=== PATIENT | female | born 1955 | race Hispanic/Latino ===

== ENCOUNTER 2017-09-01 08:49 | Emergency (ER) | payer MEDICAID ==
[~2017-09-01 08:49] MED LIST: ALPR1TAB7 PO; ASPI-1005 PO; ATOR10 PO; FLUO40CA49 PO; GABA-531 PO; HYDR12.530 PO; HYDR1TAB10 PO; IBUP-2077 PO; LOSA25TA21 PO; Levofloxacin PO; METAMUCIL425 GM PO; METH500T6 PO; OSEL75 PO; PANT40TA25 PO; QUET200XR PO; fluoxetine PO
[2017-09-01 09:15] LABS: APPEARANCE,URINE Clear (CLEAR); BILIRUBIN,URINE Negative (NEGATIVE); COLOR,URINE Yellow (YELLOW); GLUCOSE, URINE (UA) Negative (NEGATIVE); KETONES,URINE Negative (NEGATIVE); LEUKOCYTE ESTERASE ,URINE Small (NEGATIVE); NITRATE,URINE Negative (NEGATIVE); OCCULT BLOOD,URINE Negative (NEGATIVE); PH,URINE 5.5 (5.0-8.0); PROTEIN,URINE Negative (NEGATIVE); UROBILINOGEN,URINE 0.2 mg/dL (0.2-1.0)
[2017-09-01] MEDS ORDERED: ONDANSETRON HCL 4 MG/2 ML VIAL ONE (09:26)
[2017-09-01] MEDS ORDERED: FAMOTIDINE/PF 20 MG/2 ML VIAL IV ONE (09:27)
[2017-09-01 09:30] LABS: BASOPHILS % (AUTO) 0.5 % (0.0-5.0); EOSINOPHILS % (AUTO) 4.2 % (0.0-8.0); HEMATOCRIT 33.7 % (36-48); LYMPHOCYTES % (AUTO) 20.9 % (21.0-51.0); MEAN CORPUSCULAR HEMOGLOBIN 29.8 pg (27.0-33.0); MEAN CORPUSCULAR HGB CONC 33.8 g/dL (32.0-36.0); MONOCYTES % (AUTO) 6.1 % (3.0-13.0); NEUTROPHILS % (AUTO) 68.3 % (40.0-77.0); NUCLEATED RED BLOOD CELLS 0.1 % (0.0-0.19); PLATELET COUNT (AUTO) 257 K/uL (130-400); RED BLOOD CELL COUNT(AUTO) 3.83 MIL/uL (4.00-5.50); RED CELL DISTRIBUTION WIDTH 14.7 % (11.0-15.5); WHITE BLOOD COUNT (AUTO) 10.2 K/uL (4.8-10.8)
[2017-09-01 09:34] LABS: RBC,URINE 0-1 /HPF (0-1)
[2017-09-01 09:35] LABS: BACTERIA,URINE Moderate /HPF (None Seen); SQUAMOUS EPITHELIAL CELL,UR Few /LPF (0-2)
[2017-09-01 09:37] LABS: CREATININE 0.9 mg/dL (0.5-1.5); POTASSIUM 3.6 mmol/L (3.5-5.1)
[2017-09-01 09:45] LABS: ALBUMIN 2.8 g/dL (3.5-5.0); BILIRUBIN,TOTAL 0.3 mg/dL (0.2-1.0); TOTAL PROTEIN, SERUM 7.3 g/dL (6.0-8.3)
[2017-09-01] MEDS ORDERED: IOPAMIDOL-370 75 ML VIAL IV ONE (09:48)
[2017-09-01] MEDS ORDERED: SUCRALFATE 1 GM TABLET ONE (11:41)
[2017-09-01] MEDS ORDERED: MAG HYDROX/AL HYDROX/SIMETH ES 30 ML SUSP UDCUP ONE (11:41)
[2017-09-01] MEDS ORDERED: DICYCLOMINE HCL 20 MG TAB ONE (11:42)
== END 2017-09-01 13:05 | disposition home or self-care (01) ==
LOC: EDH 08:49
DX: R10.12 Left upper quadrant pain (principal); R11.2 Nausea with vomiting, unspecified; E11.9 Type 2 diabetes mellitus without complications; I10 Essential (primary) hypertension; Z98.890 Other specified postprocedural states; Z87.891 Personal history of nicotine dependence
CPT/HCPCS: 36415; 74177; 80053; 81001; 85025; 87088; 87186; 93005; 96374; 96375; 99285; J2405; J3490; Q9967

== ENCOUNTER 2017-09-09 13:02 | Inpatient (IN) | payer MEDICAID ==
[~2017-09-09] VITALS: Ht 165.1 cm; Wt 128.1 kg
[2017-09-09 14:16] LABS: BASOPHILS % (AUTO) 0.4 % (0.0-5.0); EOSINOPHILS % (AUTO) 2.3 % (0.0-8.0); HEMATOCRIT 37.4 % (36-48); LYMPHOCYTES % (AUTO) 12.6 % (21.0-51.0); MEAN CORPUSCULAR HEMOGLOBIN 29.7 pg (27.0-33.0); MEAN CORPUSCULAR HGB CONC 33.1 g/dL (32.0-36.0); MEAN CORPUSCULAR VOLUME 89.8 fL (79-99); MONOCYTES % (AUTO) 5.6 % (3.0-13.0); NEUTROPHILS % (AUTO) 79.1 % (40.0-77.0); PLATELET COUNT (AUTO) 263 K/uL (130-400); RED BLOOD CELL COUNT(AUTO) 4.17 MIL/uL (4.00-5.50); RED CELL DISTRIBUTION WIDTH 14.4 % (11.0-15.5); WHITE BLOOD COUNT (AUTO) 13.4 K/uL (4.8-10.8)
[2017-09-09] MEDS ORDERED: MEROPENEM 1 GM VIAL ONE ×2 (14:17→21:04)
[2017-09-09 14:23] LABS: APPEARANCE,URINE Clear (CLEAR); BILIRUBIN,URINE Negative (NEGATIVE); COLOR,URINE Yellow (YELLOW); GLUCOSE, URINE (UA) Negative (NEGATIVE); KETONES,URINE Negative (NEGATIVE); LEUKOCYTE ESTERASE ,URINE Trace (NEGATIVE); NITRATE,URINE Negative (NEGATIVE); OCCULT BLOOD,URINE Negative (NEGATIVE); PH,URINE 6.5 (5.0-8.0); POTASSIUM 3.7 mmol/L (3.5-5.1); PROTEIN,URINE Negative (NEGATIVE); UROBILINOGEN,URINE 0.2 mg/dL (0.2-1.0)
[2017-09-09 14:30] LABS: BACTERIA,URINE Rare /HPF (None Seen); RBC,URINE 0-1 /HPF (0-1); SQUAMOUS EPITHELIAL CELL,UR Rare /LPF (0-2); WBC,URINE 0-1 /HPF (0-1)
[2017-09-09] MEDS ORDERED: ACETAMINOPHEN 325 MG TAB PO PRN (22:45)
[2017-09-10] MEDS ORDERED: PHARMACY COMMUNICATION MISC SCH (00:45)
[2017-09-10] MEDS ORDERED: MEROPENEM 500MG+NS 50ML 50 ML IV SCH (05:00)
[2017-09-10] MEDS ORDERED: MEROPENEM 500 MG VIAL ONE ×2 (05:33→13:45)
[2017-09-10 05:57] LABS: HEMATOCRIT 33.3 % (36-48); MEAN CORPUSCULAR HEMOGLOBIN 30.5 pg (27.0-33.0); MEAN CORPUSCULAR VOLUME 89.8 fL (79-99); PLATELET COUNT (AUTO) 235 K/uL (130-400); RED BLOOD CELL COUNT(AUTO) 3.71 MIL/uL (4.00-5.50); RED CELL DISTRIBUTION WIDTH 14.3 % (11.0-15.5); WHITE BLOOD COUNT (AUTO) 10.6 K/uL (4.8-10.8)
[2017-09-10 06:14] LABS: MAGNESIUM 1.6 mg/dL (1.80-2.40); POTASSIUM 3.8 mmol/L (3.5-5.1)
[2017-09-10] MEDS ORDERED: PANTOPRAZOLE SODIUM 40 MG TABLET.DR PO ONE (08:28)
[2017-09-10] MEDS ORDERED: ENOXAPARIN SODIUM 40 MG/0.4 ML SYRINGE SQ ONE (08:28)
[2017-09-10] MEDS: ENOXAPARIN SODIUM 40 MG/0.4 ML SYRINGE SQ SCH (09:00)
[2017-09-10] MEDS ORDERED: HYDROCODONE/ACETAMINOPHEN 5/325 MG TAB PO PRN (13:45)
[2017-09-10] MEDS ORDERED: LIDOCAINE 5% TOPICAL PATCH TP PRN (13:45)
[2017-09-10] MEDS: GABAPENTIN 300 MG CAPSULE PO SCH ×2 (14:00→21:43)
[2017-09-10] MEDS: ALPRAZOLAM 1 MG TAB PO SCH ×2 (14:00→21:43)
[2017-09-10] MEDS: DOCUSATE SODIUM 100 MG CAP PO SCH ×2 (14:00→21:00)
[2017-09-10 15:15] VITALS: BP 137/67
[2017-09-10] MEDS: LEFLUNOMIDE 10 MG PO SCH (16:02)
[2017-09-10] MEDS: METFORMIN HCL 500 MG TABLET PO SCH (16:02)
[2017-09-10] MEDS: PANTOPRAZOLE SODIUM 40 MG TABLET.DR PO SCH (16:26)
[2017-09-10] MEDS ORDERED: PNEUMOCOCCAL VACCINE POLYVALENT 0.5 ML/VIAL [PPV] IM SCH (18:45)
[2017-09-10 20:00] VITALS: BP 130/76
[2017-09-10] MEDS ORDERED: INSULIN DETEMIR 10ML 100 UNIT/ML 10ML SQ SCH (21:00)
[2017-09-10] MEDS: INSULIN HUMULIN R 100 UNIT/ML 3ML SQ SCH (21:00)
[2017-09-10] MEDS: MEROPENEM 500 MG VIAL IVP SCH (21:42)
[2017-09-10] MEDS: ATORVASTATIN CALCIUM 40 MG TABLET PO SCH (21:43)
[2017-09-10] MEDS: INSULIN GLARGINE 100 UNITS/ML 10 ML VIAL SQ SCH (22:28)
[2017-09-10] MEDS ORDERED: INSULIN GLARGINE 100 UNITS/ML 10 ML VIAL SQ ONE (22:36)
[2017-09-11] VITALS (7 sets, daily range): BP systolic 107–136; BP diastolic 64–87
[2017-09-11] MEDS: MEROPENEM 500 MG VIAL IVP SCH ×3 (05:10→22:30)
[2017-09-11] MEDS: INSULIN HUMULIN R 100 UNIT/ML 3ML SQ SCH ×4 (06:07→21:00)
[2017-09-11] MEDS: VITAMIN D3 PO SCH (09:00)
[2017-09-11] MEDS: ULORIC 40 MG PO SCH (09:00)
[2017-09-11] MEDS: PANTOPRAZOLE SODIUM 40 MG TABLET.DR PO SCH (10:32)
[2017-09-11] MEDS: ALPRAZOLAM 1 MG TAB PO SCH ×3 (10:32→22:30)
[2017-09-11] MEDS: FERROUS SULFATE 325 MG TABLET.DR PO SCH (10:32)
[2017-09-11] MEDS: GABAPENTIN 300 MG CAPSULE PO SCH ×3 (10:32→22:31)
[2017-09-11] MEDS: DOCUSATE SODIUM 100 MG CAP PO SCH ×3 (10:32→22:30)
[2017-09-11] MEDS: METFORMIN HCL 500 MG TABLET PO SCH ×2 (10:32→18:07)
[2017-09-11] MEDS: LOSARTAN 50 MG TABLET PO SCH (10:32)
[2017-09-11] MEDS: ASPIRIN 81 MG EC TAB PO SCH (10:32)
[2017-09-11] MEDS: CETIRIZINE HCL 5 MG TABLET PO SCH (10:32)
[2017-09-11] MEDS: ENOXAPARIN SODIUM 40 MG/0.4 ML SYRINGE SQ SCH (10:33)
[2017-09-11] MEDS: FOLIC ACID 1 MG TABLET PO SCH (10:33)
[2017-09-11] MEDS: HYDROCHLOROTHIAZIDE 25 MG TABLET PO SCH (10:33)
[2017-09-11] MEDS: FLUOXETINE HCL 20 MG CAPSULE PO SCH (10:33)
[2017-09-11 12:51] LABS: INR 0.95 (0.85-1.15)
[2017-09-11] MEDS: LEFLUNOMIDE 10 MG PO SCH (17:00)
[2017-09-11] MEDS: ATORVASTATIN CALCIUM 40 MG TABLET PO SCH (22:30)
[2017-09-11] MEDS: INSULIN GLARGINE 100 UNITS/ML 10 ML VIAL SQ SCH (22:45)
[2017-09-12 04:00] VITALS: BP 107/52
[2017-09-12] MEDS: MEROPENEM 500 MG VIAL IVP SCH ×3 (05:30→21:17)
[2017-09-12] MEDS: INSULIN HUMULIN R 100 UNIT/ML 3ML SQ SCH ×4 (06:33→21:00)
[2017-09-12] MEDS: FLUOXETINE HCL 20 MG CAPSULE PO SCH (08:34)
[2017-09-12] MEDS: FERROUS SULFATE 325 MG TABLET.DR PO SCH (08:34)
[2017-09-12] MEDS: ALPRAZOLAM 1 MG TAB PO SCH ×3 (08:34→21:17)
[2017-09-12] MEDS: CETIRIZINE HCL 5 MG TABLET PO SCH (08:34)
[2017-09-12] MEDS: ASPIRIN 81 MG EC TAB PO SCH (08:34)
[2017-09-12] MEDS: DOCUSATE SODIUM 100 MG CAP PO SCH ×3 (08:35→21:17)
[2017-09-12] MEDS: ENOXAPARIN SODIUM 40 MG/0.4 ML SYRINGE SQ SCH (08:35)
[2017-09-12] MEDS: FOLIC ACID 1 MG TABLET PO SCH (08:35)
[2017-09-12] MEDS: METFORMIN HCL 500 MG TABLET PO SCH ×2 (08:39→16:47)
[2017-09-12] MEDS: PANTOPRAZOLE SODIUM 40 MG TABLET.DR PO SCH (08:39)
[2017-09-12] MEDS: GABAPENTIN 300 MG CAPSULE PO SCH ×3 (08:39→21:17)
[2017-09-12] MEDS: HYDROCHLOROTHIAZIDE 25 MG TABLET PO SCH (08:40)
[2017-09-12] MEDS: LOSARTAN 50 MG TABLET PO SCH (08:41)
[2017-09-12] MEDS: ULORIC 40 MG PO SCH (08:46)
[2017-09-12] MEDS: VITAMIN D3 PO SCH (08:47)
[2017-09-12 08:57] VITALS: BP 117/58
[2017-09-12 11:38] VITALS: BP 114/68
[2017-09-12] MEDS: LEFLUNOMIDE 10 MG PO SCH (15:23)
[2017-09-12 15:45] VITALS: BP 125/67
[2017-09-12] MEDS ORDERED: WATER FOR INJECTION,STERILE 5 ML VIAL ONE (19:50)
[2017-09-12 20:00] VITALS: BP 116/55
[2017-09-12] MEDS: ATORVASTATIN CALCIUM 40 MG TABLET PO SCH (21:17)
[2017-09-12] MEDS: INSULIN GLARGINE 100 UNITS/ML 10 ML VIAL SQ SCH (21:22)
[2017-09-13] VITALS: BP 122/74
[2017-09-13 04:00] VITALS: BP 119/60
[2017-09-13] MEDS ORDERED: WATER FOR INJECTION,STERILE 5 ML VIAL ONE (05:20)
[2017-09-13] MEDS: MEROPENEM 500 MG VIAL IVP SCH ×2 (05:29→13:46)
[2017-09-13] MEDS: INSULIN HUMULIN R 100 UNIT/ML 3ML SQ SCH ×2 (06:20→11:30)
[2017-09-13 08:00] VITALS: BP 108/61
[2017-09-13] MEDS: VITAMIN D3 PO SCH (09:00)
[2017-09-13] MEDS: ULORIC 40 MG PO SCH (09:00)
[2017-09-13] MEDS: GABAPENTIN 300 MG CAPSULE PO SCH ×2 (09:07→13:47)
[2017-09-13] MEDS: ALPRAZOLAM 1 MG TAB PO SCH ×2 (09:07→13:46)
[2017-09-13] MEDS: FLUOXETINE HCL 20 MG CAPSULE PO SCH (09:07)
[2017-09-13] MEDS: PANTOPRAZOLE SODIUM 40 MG TABLET.DR PO SCH (09:07)
[2017-09-13] MEDS: CETIRIZINE HCL 5 MG TABLET PO SCH (09:07)
[2017-09-13] MEDS: LOSARTAN 50 MG TABLET PO SCH (09:08)
[2017-09-13] MEDS: FOLIC ACID 1 MG TABLET PO SCH (09:08)
[2017-09-13] MEDS: DOCUSATE SODIUM 100 MG CAP PO SCH ×2 (09:08→13:47)
[2017-09-13] MEDS: FERROUS SULFATE 325 MG TABLET.DR PO SCH (09:09)
[2017-09-13] MEDS: METFORMIN HCL 500 MG TABLET PO SCH (09:09)
[2017-09-13] MEDS: ASPIRIN 81 MG EC TAB PO SCH (09:09)
[2017-09-13] MEDS: HYDROCHLOROTHIAZIDE 25 MG TABLET PO SCH (09:09)
[2017-09-13] MEDS: ENOXAPARIN SODIUM 40 MG/0.4 ML SYRINGE SQ SCH (09:10)
== END 2017-09-13 14:35 | disposition home or self-care (01) | DRG 463 ==
LOC: EDH 13:02 → EDHIP 13:03 → 3CH 09-10 15:38
PROVIDERS: ADMIT Family Medicine; ATTEND Family Medicine
PROC: 3E0234Z Introduction of Serum, Toxoid and Vaccine into Muscle, Percutaneous Approach (ICD-10-PCS; 2017-09-09)
PROC: 02HV33Z Insertion of Infusion Device into Superior Vena Cava, Percutaneous Approach (ICD-10-PCS; principal; 2017-09-12)
DX: N39.0 Urinary tract infection, site not specified (principal); E66.01 Morbid (severe) obesity due to excess calories; K76.0 Fatty (change of) liver, not elsewhere classified; E11.9 Type 2 diabetes mellitus without complications; F32.9 Major depressive disorder, single episode, unspecified; F41.9 Anxiety disorder, unspecified; B96.20 Unspecified Escherichia coli [E. coli] as the cause of diseases classified elsewhere; N10 Acute pyelonephritis; I10 Essential (primary) hypertension; E66.9 Obesity, unspecified; Z16.24 Resistance to multiple antibiotics; Z16.12 Extended spectrum beta lactamase (ESBL) resistance; Z68.42 Body mass index [BMI] 45.0-49.9, adult; Z88.0 Allergy status to penicillin; Z23 Encounter for immunization
CPT/HCPCS: 36415; 71045; 80048; 81001; 82948; 83735; 85025; 85027; 85610; 87507; A4218; J1650; J1815; J2185

== ENCOUNTER 2018-02-15 18:25 | Emergency (ER) | payer MEDICAID ==
[2018-02-15] MEDS ORDERED: DEXAMETHASONE SOD PHOSPHATE 10MG/ML 1ML VIAL ONE (19:12)
[2018-02-15] MEDS ORDERED: ONDANSETRON HCL 4 MG/2 ML VIAL ONE (19:12)
[2018-02-15] MEDS ORDERED: MORPHINE SULFATE 4 MG/1ML SYG ONE (19:12)
[2018-02-15] MEDS ORDERED: IPRATROPIUM/ALBUTEROL SULFATE 3 ML SOLUTION IH ONE (19:24)
== END 2018-02-15 20:24 | disposition home or self-care (01) ==
LOC: EDH 18:25
DX: M54.12 Radiculopathy, cervical region (principal); J45.21 Mild intermittent asthma with (acute) exacerbation; E11.9 Type 2 diabetes mellitus without complications; I10 Essential (primary) hypertension; Z79.4 Long term (current) use of insulin
CPT/HCPCS: 94640; 96374; 96375; 99284; J1100; J2270; J2405

== ENCOUNTER 2018-02-22 01:44 | Emergency (ER) | payer MEDICAID ==
[2018-02-22 05:28] LABS: BASOPHILS % (AUTO) 0.4 % (0.0-5.0); EOSINOPHILS % (AUTO) 5.1 % (0.0-8.0); HEMATOCRIT 32.7 % (36-48); LYMPHOCYTES % (AUTO) 23.6 % (21.0-51.0); MEAN CORPUSCULAR HEMOGLOBIN 29.8 pg (27.0-33.0); MEAN CORPUSCULAR HGB CONC 34.1 g/dL (32.0-36.0); MEAN CORPUSCULAR VOLUME 87.5 fL (79-99); MONOCYTES % (AUTO) 6.4 % (3.0-13.0); NEUTROPHILS % (AUTO) 64.5 % (40.0-77.0); PLATELET COUNT (AUTO) 277 K/uL (130-400); RED BLOOD CELL COUNT(AUTO) 3.73 MIL/uL (4.00-5.50); RED CELL DISTRIBUTION WIDTH 13.5 % (11.0-15.5); WHITE BLOOD COUNT (AUTO) 12.3 K/uL (4.8-10.8)
[2018-02-22 05:36] LABS: CARBON DIOXIDE 29 mmol/L (21-32); CHLORIDE 105 mmol/L (101-111); GLOMERULAR FILTR. RATE CALC 60 mL/min (>60); GLUCOSE,RANDOM 128 mg/dL (70-105); POTASSIUM 4.9 mmol/L (3.5-5.1); SODIUM SERUM 142 mmol/L (136-145); UREA NITROGEN, BLOOD 32 mg/dL (7-18)
[2018-02-22 05:40] LABS: ALANINE AMINOTRANSFERASE 39 U/L (12-78); ALBUMIN 2.9 g/dL (3.5-5.0); ASPARTATE AMINOTRANSFERASE 19 U/L (10-37); BILIRUBIN,TOTAL 0.1 mg/dL (0.2-1.0)
[2018-02-22 05:43] LABS: SALICYLATE < 2.8 mg/dL (2.8-20.0)
[2018-02-22 05:44] LABS: ACETAMINOPHEN < 1 mcg/mL (10-30)
== END 2018-02-22 07:53 | disposition home or self-care (01) ==
LOC: EDH 01:44
DX: R06.4 Hyperventilation (principal); E86.0 Dehydration; G89.29 Other chronic pain; J45.909 Unspecified asthma, uncomplicated; E11.9 Type 2 diabetes mellitus without complications; I10 Essential (primary) hypertension; Z79.4 Long term (current) use of insulin; Z88.0 Allergy status to penicillin; Z79.82 Long term (current) use of aspirin
CPT/HCPCS: 36415; 80053; 85025; 93005; 99285; G0480; G0481

== ENCOUNTER 2018-07-06 09:26 | Emergency (ER) | payer MEDICAID ==
[~2018-07-06 09:26] MED LIST changes: +LOSA25TA16 PO; -LOSA25TA21 PO
[2018-07-06] MEDS ORDERED: KETOROLAC TROMETHAMINE 30MG/ML ONE (10:09)
[2018-07-06] MEDS ORDERED: DIAZEPAM 5 MG TABLET ONE (10:10)
== END 2018-07-06 12:07 | disposition home or self-care (01) ==
LOC: EDH 09:26
DX: S40.012A Contusion of left shoulder, initial encounter (principal); I10 Essential (primary) hypertension; E11.9 Type 2 diabetes mellitus without complications; J45.909 Unspecified asthma, uncomplicated; Z88.0 Allergy status to penicillin; Z79.4 Long term (current) use of insulin; W18.39XA Other fall on same level, initial encounter; Y93.01 Activity, walking, marching and hiking; Y92.89 Other specified places as the place of occurrence of the external cause; Y99.8 Other external cause status
CPT/HCPCS: 73030; 73562; 96374; 99284; J1885

== ENCOUNTER 2019-06-16 11:55 | Observation (INO) | payer MEDICAID ==
[~2019-06-16] VITALS: Ht 162.6 cm; Wt 136.7 kg
[~2019-06-16 11:55] MED LIST changes: -LOSA25TA16 PO; +LOSA25TA41 PO; +QUET200T5 PO; -QUET200XR PO
[2019-06-16 12:19] LABS: BASOPHILS % (AUTO) 0.2 % (0.0-5.0); EOSINOPHILS % (AUTO) 0.9 % (0.0-8.0); HEMATOCRIT 33.1 % (36-48); LYMPHOCYTES % (AUTO) 17.7 % (21.0-51.0); MEAN CORPUSCULAR HEMOGLOBIN 30.4 pg (27.0-33.0); MEAN CORPUSCULAR HGB CONC 33.5 g/dL (32.0-36.0); MONOCYTES % (AUTO) 6.9 % (3.0-13.0); NEUTROPHILS % (AUTO) 74.3 % (40.0-77.0); PLATELET COUNT (AUTO) 215 K/uL (130-400); RED BLOOD CELL COUNT(AUTO) 3.63 MIL/uL (4.00-5.50); WHITE BLOOD COUNT (AUTO) 8.4 K/uL (4.8-10.8)
[2019-06-16] MEDS ORDERED: SODIUM CHLORIDE 0.9% 500ML 500 ML IV ONE (12:20)
[2019-06-16] MEDS ORDERED: LORAZEPAM 2 MG/ML 1 ML VIAL ONE (12:20)
[2019-06-16] MEDS ORDERED: IPRATROPIUM/ALBUTEROL SULFATE 3 ML SOLUTION IH ONE (12:25)
[2019-06-16 12:29] LABS: CREATININE 0.9 mg/dL (0.5-1.5); POTASSIUM 4.2 mmol/L (3.5-5.1)
[2019-06-16 12:33] LABS: ALBUMIN 2.7 g/dL (3.5-5.0); BILIRUBIN,TOTAL 0.2 mg/dL (0.2-1.0); TOTAL PROTEIN, SERUM 7.1 g/dL (6.0-8.3)
[2019-06-16 13:17] LABS: B-TYPE NATRIURETIC PEPTIDE 165 pg/mL (0-100)
[2019-06-16] MEDS ORDERED: IOHEXOL 350 MG/ML 100ML INFUS..BTL IV ONE (16:00)
[2019-06-16] MEDS ORDERED: FUROSEMIDE 10 MG/ML 2ML VIAL ONE ×2 (17:21→18:01)
[2019-06-16] MEDS ORDERED: ASPIRIN 325 MG TABLET ONE (18:01)
[2019-06-16 19:37] LABS: CREATINE KINASE, TOTAL 18 U/L (21-232); MYOGLOBIN 27 ng/mL (10-92); TROPONIN I < 0.04 ng/mL (0.00-0.06)
[2019-06-16 22:45] VITALS: BP 134/59
[2019-06-17 01:34] LABS: CREATINE KINASE, TOTAL 18 U/L (21-232); MYOGLOBIN 28 ng/mL (10-92); TROPONIN I < 0.04 ng/mL (0.00-0.06)
[2019-06-17 03:33] VITALS: BP 120/56
[2019-06-17 04:28] LABS: HEMATOCRIT 30.8 % (36-48); MEAN CORPUSCULAR HEMOGLOBIN 30.8 pg (27.0-33.0); MEAN CORPUSCULAR HGB CONC 34.1 g/dL (32.0-36.0); MEAN CORPUSCULAR VOLUME 90.3 fL (79-99); PLATELET COUNT (AUTO) 212 K/uL (130-400); RED BLOOD CELL COUNT(AUTO) 3.41 MIL/uL (4.00-5.50); RED CELL DISTRIBUTION WIDTH 13.3 % (11.0-15.5); WHITE BLOOD COUNT (AUTO) 8.9 K/uL (4.8-10.8)
[2019-06-17 04:57] LABS: ALBUMIN 2.5 g/dL (3.5-5.0); BILIRUBIN,TOTAL 0.2 mg/dL (0.2-1.0); CREATININE 1.1 mg/dL (0.5-1.5); POTASSIUM 3.6 mmol/L (3.5-5.1); TOTAL PROTEIN, SERUM 6.8 g/dL (6.0-8.3)
[2019-06-17] MEDS: INSULIN HUMULIN R 100 UNIT/ML 3ML SQ SCH ×2 (06:54→06:55)
[2019-06-17 07:04] LABS: CREATINE KINASE, TOTAL 21 U/L (21-232); MYOGLOBIN 24 ng/mL (10-92); TROPONIN I < 0.04 ng/mL (0.00-0.06)
[2019-06-17 08:00] VITALS: BP 146/64
[2019-06-17] MEDS ORDERED: ENOXAPARIN SODIUM 40 MG/0.4 ML SYRINGE SQ SCH (09:00)
--- NOTE | 2019-06-17 09:35 | NUR ---
Attempted to contact Yann from echo, no answer, left voicemail pt is pending echo and is status STO.
[2019-06-17 11:00] VITALS: BP 123/79
[2019-06-17 16:00] VITALS: BP 128/80
--- NOTE | 2019-06-17 16:00 | NUR ---
[place] OKAY TO DC HOME PER DR. MORENO.
--- NOTE | 2019-06-17 17:07 | NUR ---
PT D/C HOME USING TEACH BACK TECHNIQUE RE; NEW MEDS, HOME MEDS, S/S TO WATCH FOR AND WHEN TO CALL MD OR 911. FOLLOW UP WITH PRIMARY DOCTOR (DR. LAW) NEXT WEEK. CALL 911 IF SHORTNESS OF BREATH OR CHEST PAIN DOES NOT RESOLVE WITH REST. IV OUT INTACT, NO SOB NOR C/P, AAOX3, TELE PACK REMOVED.
== END 2019-06-17 17:15 | disposition home or self-care (01) ==
LOC: EDH 11:55 → EDHIP 11:56 → 4DH 21:42
PROVIDERS: ADMIT Internal Medicine; ATTEND Internal Medicine
DX: R06.02 Shortness of breath (principal); R00.2 Palpitations; E66.01 Morbid (severe) obesity due to excess calories; I10 Essential (primary) hypertension; E78.5 Hyperlipidemia, unspecified; M79.7 Fibromyalgia; F41.9 Anxiety disorder, unspecified; E11.9 Type 2 diabetes mellitus without complications; R79.89 Other specified abnormal findings of blood chemistry; J45.909 Unspecified asthma, uncomplicated; Z68.43 Body mass index [BMI] 50.0-59.9, adult
CPT/HCPCS: 36415 ×2; 71045; 71275; 80053 ×2; 82550 ×4; 82948 ×4; 83874 ×3; 83880; 84484 ×4; 85025; 85027; 85378; 93005; 93306; 93970; 94640; 96372; 99284; G0378 ×23; J1650; J1940 ×2; J2060; J7040; Q9967

== ENCOUNTER 2019-08-16 09:35 | Observation (INO) | payer MEDICAID ==
[~2019-08-16] VITALS: Ht 154.9 cm; Wt 143.8 kg
[2019-08-16] MEDS ORDERED: METHYLPREDNISOLONE SOD SUCC 125MG/2ML VIAL ONE (09:52)
[2019-08-16] MEDS ORDERED: IPRATROPIUM/ALBUTEROL SULFATE 3 ML SOLUTION IH ONE (09:58)
[2019-08-16 10:00] LABS: BASOPHILS % (AUTO) 0.2 % (0.0-5.0); EOSINOPHILS % (AUTO) 2.1 % (0.0-8.0); HEMATOCRIT 31.9 % (36-48); MEAN CORPUSCULAR HEMOGLOBIN 29.5 pg (27.0-33.0); MEAN CORPUSCULAR HGB CONC 30.4 g/dL (32.0-36.0); MONOCYTES % (AUTO) 3.9 % (3.0-13.0); NEUTROPHILS % (AUTO) 88.9 % (40.0-77.0); PLATELET COUNT (AUTO) 184 K/uL (130-400); RED BLOOD CELL COUNT(AUTO) 3.29 MIL/uL (4.00-5.50); RED CELL DISTRIBUTION WIDTH 12.4 % (11.0-15.5); WHITE BLOOD COUNT (AUTO) 17.6 K/uL (4.8-10.8)
[2019-08-16 10:14] LABS: CREATININE 1.2 mg/dL (0.5-1.5); POTASSIUM 4.4 mmol/L (3.5-5.1)
[2019-08-16 10:19] LABS: ALBUMIN 2.6 g/dL (3.5-5.0); BILIRUBIN,TOTAL 0.4 mg/dL (0.2-1.0); TOTAL PROTEIN, SERUM 6.2 g/dL (6.0-8.3)
[2019-08-16] MEDS ORDERED: LEVOFLOXACIN 500 MG/D5W 100 ML 100 ML ONE (11:22)
[2019-08-16] MEDS ORDERED: CEFTRIAXONE SODIUM 1 GM ONE (11:23)
[2019-08-16] MEDS ORDERED: SODIUM CHLORIDE 0.9% 1000ML 1,000 ML IV ONE (11:25)
[2019-08-16] MEDS ORDERED: GLUCAGON 1MG KIT 1 MG ML IM PRN (12:30)
[2019-08-16] MEDS ORDERED: DEXTROSE 50%-WATER 50 ML DISP.SYRIN IV PRN (12:30)
--- NOTE | 2019-08-16 14:26 | NUR ---
ER ADMIT PATIENT RECEIVED FROM ER VIA STRETCHER ACCOMPANIED BY FAMILY. NO OBVIOUS SIGNS OF DISTRESS NOTED. DENIES PAIN AT THIS TIME. SHE IS ON O2 AT 2 L/MIN VIA NASAL CANNULA. SHE HAS BEEN ORIENTED TO ROOM AND USE OF CALL LIGHT. BED IS IN LOWEST POSITION AND LOCKED WITH PERSONAL ITEMS WITHIN REACH. WILL CONTINUE TO MONITOR.
[2019-08-16 14:38] VITALS: BP 124/83
[2019-08-16] MEDS ORDERED: ALPRAZOLAM 1 MG TAB PO PRN (15:15)
[2019-08-16] MEDS ORDERED: HYDROCODONE/ACETAMINOPHEN 7.5/325 MG TAB PO PRN (15:15)
[2019-08-16] MEDS ORDERED: ASPI-555 PO (15:24)
[2019-08-16] MEDS ORDERED: ATOR10 PO (15:24)
[2019-08-16] MEDS ORDERED: ALPR1TAB2 PO (15:24)
[2019-08-16] MEDS ORDERED: HYDR-4064 PO (15:24)
[2019-08-16] MEDS ORDERED: GABA-531 PO (15:24)
[2019-08-16] MEDS ORDERED: LEVO75TA10 PO (15:24)
[2019-08-16] MEDS ORDERED: METF-444 PO (15:24)
[2019-08-16] MEDS ORDERED: LOSA25TA41 PO (15:24)
[2019-08-16] MEDS ORDERED: HYDR25TA PO (15:24)
[2019-08-16] MEDS ORDERED: INSU100V12 SQ (15:24)
[2019-08-16 16:14] VITALS: BP 112/64
[2019-08-16] MEDS: HUMALOG PO SS1 SQ SCH (16:30)
[2019-08-16] MEDS: GABAPENTIN 300 MG CAPSULE PO SCH (17:00)
[2019-08-16] MEDS: IPRATROPIUM/ALBUTEROL SULFATE 3 ML SOLUTION IH SCH ×2 (18:39→23:15)
[2019-08-16 20:00] VITALS: BP 127/54
[2019-08-16] MEDS ORDERED: INSULIN GLARGINE 100 UNITS/ML 10 ML VIAL SQ SCH (21:00)
[2019-08-16] MEDS ORDERED: ATORVASTATIN CALCIUM 10 MG TABLET PO SCH (21:00)
[2019-08-17] VITALS: BP 127/68
[2019-08-17 02:59] LABS: APPEARANCE,URINE Clear (CLEAR); BILIRUBIN,URINE Negative (NEGATIVE); COLOR,URINE Yellow (YELLOW); GLUCOSE, URINE (UA) Negative (NEGATIVE); KETONES,URINE Negative (NEGATIVE); LEUKOCYTE ESTERASE ,URINE Negative (NEGATIVE); NITRATE,URINE Negative (NEGATIVE); OCCULT BLOOD,URINE Negative (NEGATIVE); PROTEIN,URINE POS 1+ mg/dL (NEGATIVE)
[2019-08-17 03:11] LABS: BACTERIA,URINE None Seen /HPF (None Seen); RBC,URINE None Seen /HPF (0-1); SQUAMOUS EPITHELIAL CELL,UR Rare /HPF (0-2); WBC,URINE None Seen /HPF (0-1)
[2019-08-17 04:12] VITALS: BP 136/73
[2019-08-17] MEDS: HUMALOG PO SS1 SQ SCH (06:32)
[2019-08-17] MEDS: IPRATROPIUM/ALBUTEROL SULFATE 3 ML SOLUTION IH SCH (06:39)
[2019-08-17 07:30] VITALS: BP 122/72
[2019-08-17] MEDS ORDERED: LEVOTHYROXINE 75 MCG TABLET PO SCH (07:30)
[2019-08-17] MEDS ORDERED: METFORMIN HCL 500 MG TABLET PO SCH (08:00)
[2019-08-17] MEDS ORDERED: ASPIRIN 81 MG EC TAB PO SCH (09:00)
[2019-08-17] MEDS ORDERED: ENOXAPARIN SODIUM 30 MG/0.3 ML SQ SCH (09:00)
[2019-08-17] MEDS ORDERED: HYDROCHLOROTHIAZIDE 25 MG TABLET PO SCH (09:00)
[2019-08-17] MEDS ORDERED: LOSARTAN 50 MG TABLET PO SCH (09:00)
[2019-08-17] MEDS ORDERED: LEVOFLOXACIN 500 MG/D5W 100 ML 100 ML IV SCH (09:00)
[2019-08-17] MEDS: GABAPENTIN 300 MG CAPSULE PO SCH (09:41)
[2019-08-17] MEDS ORDERED: CEFTRIAXONE SODIUM 1 GM IVP SCH (12:00)
== END 2019-08-17 11:15 | disposition home or self-care (01) ==
LOC: EDH 09:35 → EDHIP 09:36 → 3AH 14:23
PROVIDERS: ADMIT Internal Medicine; ATTEND Internal Medicine
DX: J44.1 Chronic obstructive pulmonary disease with (acute) exacerbation (principal); J44.0 Chronic obstructive pulmonary disease with (acute) lower respiratory infection; J18.9 Pneumonia, unspecified organism; E11.9 Type 2 diabetes mellitus without complications; I10 Essential (primary) hypertension; E78.5 Hyperlipidemia, unspecified; E66.01 Morbid (severe) obesity due to excess calories; K76.0 Fatty (change of) liver, not elsewhere classified; F41.9 Anxiety disorder, unspecified; Z79.4 Long term (current) use of insulin; Z79.899 Other long term (current) drug therapy; Z68.43 Body mass index [BMI] 50.0-59.9, adult
CPT/HCPCS: 36415; 71045; 80053; 81001; 82948; 83605; 83880; 84145; 85025; 87040; 87804; 93005; 94640; 94664; 96372; 99291; G0378; J0696; J1650; J1956; J2930; J7030

== ENCOUNTER 2022-12-12 16:24 | Emergency (ER) | payer MEDICARE ==
[~2022-12-12] VITALS: Ht 162.6 cm; Wt 118.8 kg
[~2022-12-12 16:24] MED LIST changes: +ALBUHFA IH; +ALPR1TAB2 PO; -ALPR1TAB7 PO; -ASPI-1005 PO; +ASPI-556 PO; +AUD IH; -FLUO40CA49 PO; +HYDR-4064 PO; -HYDR12.530 PO; -HYDR1TAB10 PO; +HYDR25TA PO; -IBUP-2077 PO; +INSU100V12 SQ; +LEVO750T68 PO; +LEVO75TA10 PO; -Levofloxacin PO; -METAMUCIL425 GM PO; +METF-444 PO; -METH500T6 PO; -OSEL75 PO; -PANT40TA25 PO; +PRED50TA2 PO; -QUET200T5 PO; -fluoxetine PO
[2022-12-12 16:37] VITALS: BP 117/63
[2022-12-12] MEDS ORDERED: PANTOPRAZOLE 40 MG/VIAL IVP ONE (18:00)
[2022-12-12] MEDS ORDERED: 0.9%NACL 1000ML 1,000 ML IV ONE (18:00)
[2022-12-12 18:14] LABS: BASOPHILS % (AUTO) 0.4 % (0.0-5.0); EOSINOPHILS % (AUTO) 2.3 % (0.0-8.0); HEMATOCRIT 35.2 % (36-48); LYMPHOCYTES % (AUTO) 27.1 % (21.0-51.0); MEAN CORPUSCULAR HEMOGLOBIN 28.8 pg (27.0-33.0); MEAN CORPUSCULAR HGB CONC 32.7 g/dL (32.0-36.0); MONOCYTES % (AUTO) 6.4 % (3.0-13.0); NEUTROPHILS % (AUTO) 63.1 % (40.0-77.0); PLATELET COUNT (AUTO) 307 K/uL (130-400); RED CELL DISTRIBUTION WIDTH 12.3 % (11.0-15.5); WHITE BLOOD COUNT (AUTO) 13.4 K/uL (4.8-10.8)
[2022-12-12 18:23] LABS: CREATININE 1.2 mg/dL (0.5-1.5); POTASSIUM 4.3 mmol/L (3.5-5.1)
[2022-12-12 18:28] LABS: TOTAL PROTEIN, SERUM 7.2 g/dL (6.0-8.3)
[2022-12-12] MEDS ORDERED: NAPR375T6 PO (18:56)
[2022-12-12] MEDS ORDERED: CEPH500B PO (18:57)
== END 2022-12-12 19:12 | disposition home or self-care (01) ==
LOC: MERGE 16:24 → EDH 16:24
DX: S39.011A Strain of muscle, fascia and tendon of abdomen, initial encounter (principal); E11.9 Type 2 diabetes mellitus without complications; E03.9 Hypothyroidism, unspecified; F41.9 Anxiety disorder, unspecified; Z79.899 Other long term (current) drug therapy; X58.XXXA Exposure to other specified factors, initial encounter; Y93.89 Activity, other specified; Y92.89 Other specified places as the place of occurrence of the external cause; Y99.8 Other external cause status
CPT/HCPCS: 99285; 74176; 96374; 96361; 80053; 85025; 36415; J7030; C9113

== ENCOUNTER 2023-01-13 21:24 | Emergency (ER) | payer MEDICAID ==
[~2023-01-13 21:24] MED LIST changes: +CEPH500B PO; +NAPR375T6 PO
[2023-01-13] MEDS ORDERED: DiphenhydrAMINE HCL 50 MG/ML VIAL IM ONE (22:00)
[2023-01-13] MEDS ORDERED: HALOPERIDOL INJ 5 MG/ML VIAL IM SCH (22:00)
== END 2023-01-13 22:45 | disposition home or self-care (01) ==
LOC: EDH 21:24
DX: F41.9 Anxiety disorder, unspecified (principal); Z79.899 Other long term (current) drug therapy
CPT/HCPCS: 99284; 96372 ×2; J1200; J1630

== ENCOUNTER 2023-03-25 17:54 | Emergency (ER) | payer OTHER, MEDICARE ==
[~2023-03-25] VITALS: Ht 162.6 cm; Wt 123.8 kg
[2023-03-25 17:59] VITALS: BP 91/37; PULSE 81; RESP 16
== END 2023-03-25 18:53 | disposition left against medical advice (07) ==
LOC: EDH 17:54
DX: R06.02 Shortness of breath (principal); Z53.21 Procedure and treatment not carried out due to patient leaving prior to being seen by health care provider
CPT/HCPCS: 99281

== ENCOUNTER 2023-04-03 17:43 | Emergency (ER) | payer OTHER, MEDICARE ==
[~2023-04-03] VITALS: Ht 167.6 cm; Wt 108.9 kg
[2023-04-03 17:45] VITALS: BP 120/63; PULSE 69; RESP 20
[2023-04-03] MEDS ORDERED: MORPHINE 2 MG SYG IVP ONE (22:00)
== END 2023-04-03 22:12 | disposition home or self-care (01) ==
LOC: EDH 17:43
DX: S93.401A Sprain of unspecified ligament of right ankle, initial encounter (principal); J45.909 Unspecified asthma, uncomplicated; E11.9 Type 2 diabetes mellitus without complications; I10 Essential (primary) hypertension; Z79.52 Long term (current) use of systemic steroids; Z79.82 Long term (current) use of aspirin; Z79.899 Other long term (current) drug therapy; W01.10XA Fall on same level from slipping, tripping and stumbling with subsequent striking against unspecified object, initial encounter; Y93.89 Activity, other specified; Y92.89 Other specified places as the place of occurrence of the external cause; Y99.8 Other external cause status
CPT/HCPCS: 99283; 96374; 29515; 73630; J2270

== ENCOUNTER → 2023-08-01 | Outpatient (CLI) | payer OTHER, MEDICARE | END | disposition home or self-care (01) | LOC: RAH 09:58 | PROVIDERS: ATTEND Internal Medicine | DX: M48.061 Spinal stenosis, lumbar region without neurogenic claudication (principal); M54.50 Low back pain, unspecified; M51.37 Other intervertebral disc degeneration, lumbosacral region; M47.816 Spondylosis without myelopathy or radiculopathy, lumbar region | CPT/HCPCS: 72148 ==

== ENCOUNTER 2024-05-07 14:57 | Observation (INO) | payer MEDICARE ==
[~2024-05-07] VITALS: Ht 162.6 cm; Wt 120.1 kg
[~2024-05-07 14:57] MED LIST changes: -ALBUHFA IH; -ALPR1TAB2 PO; +ALPR1TAB7 PO; +AMOX1TAB16 PO; -ASPI-556 PO; -ATOR10 PO; -AUD IH; -CEPH500B PO; +FLUO40CA49 PO; +FLUT1BLS3 IH; +FURO20TA6 PO; -GABA-531 PO; +GABA300T25 PO; -HYDR-4064 PO; -HYDR25TA PO; -LEVO750T68 PO; -METF-444 PO; -NAPR375T6 PO; -PRED50TA2 PO; +VORT10TA PO; +ZOLP5TAB8 PO
[2024-05-07] MEDS: morPHINE 2 MG SYG IVP ONE (15:23)
[2024-05-07] MEDS: ondanSETRON 4MG INJ IVP ONE ×2 (15:23→15:48)
[2024-05-07] MEDS: morPHINE 4 MG SYG IVP ONE (15:48)
[2024-05-07] MEDS ORDERED: polyETHYLene GLYCol 3350 17 GM POWD.PACK PO PRN (16:00)
[2024-05-07] MEDS ORDERED: NITROGLYCERIN 0.4 MG SL TAB SL PRN (16:00)
[2024-05-07] MEDS ORDERED: doCUSate SODIUM 100 MG CAP PO PRN (16:00)
[2024-05-07] MEDS ORDERED: LACTULOSE 20 GM/30 ML UDCUP PO PRN (16:00)
[2024-05-07] MEDS ORDERED: ALPRAZolam 0.5 MG TABLET PO PRN (16:00)
[2024-05-07] MEDS ORDERED: guaiFENesin-DM 200/20MG 10ML PO PRN (16:00)
[2024-05-07] MEDS ORDERED: ZOLPidem TARTrate 5 MG TAB PO PRN (16:00)
[2024-05-07] MEDS ORDERED: ARTIFICAL TEARS SOL 15 ML OP PRN (16:00)
[2024-05-07] MEDS ORDERED: DiphenhydrAMINE HCL 25 MG CAPSULE PO PRN (16:00)
[2024-05-07] MEDS ORDERED: BENZOCAINE/MENTH/CETYLPYRD CL 1 EACH LOZENGE MM PRN (16:00)
[2024-05-07] MEDS ORDERED: guaiFENesin SUGAR-FREE 100 MG/5 ML UDCUP PO PRN (16:00)
[2024-05-07] MEDS ORDERED: ondanSETRON 4MG INJ IV PRN (16:00)
[2024-05-07] MEDS ORDERED: acetaMINOPHEN 325 MG TAB PO PRN ×3 (16:00)
[2024-05-07] MEDS ORDERED: LOPERAMIDE HCL 2 MG CAP PO PRN (16:00)
[2024-05-07] MEDS ORDERED: LIDOCAINE HCL 2% VISCOUS 30 ML, MAG/ALUM/SIMETH 30ML 30 ML, DICYCLOMINE HCL 20 MG PO PRN (16:00)
[2024-05-07] MEDS ORDERED: MAG/ALUM/SIMETH 30 ML UDCUP PO PRN (16:00)
[2024-05-07] MEDS ORDERED: DiphenhydrAMINE HCL 50 MG/ML VIAL IV PRN (16:00)
[2024-05-07 16:18] LABS: BASOPHILS # (AUTO) 0.01 K/uL (0.00-0.20); BASOPHILS % (AUTO) 0.1 % (0.0-5.0); EOSINOPHILS # (AUTO) 0.09 K/uL (0.00-0.70); EOSINOPHILS % (AUTO) 1.1 % (0.0-8.0); HEMATOCRIT 29.4 % (36-48); IMMATURE GRANULOCYTE ABSOLUTE 0.11 K/uL (0-1); LYMPHOCYTES # (AUTO) 0.6 K/uL (1.0-4.8); LYMPHOCYTES % (AUTO) 7.1 % (21.0-51.0); MEAN CORPUSCULAR HGB CONC 30.6 g/dL (32.0-36.0); MEAN CORPUSCULAR VOLUME 91.3 fL (79-99); MONOCYTES # (AUTO) 0.9 K/uL (0.1-1.0); MONOCYTES % (AUTO) 11.1 % (3.0-13.0); NEUTROPHILS # (AUTO) 6.5 K/uL (1.8-7.7); NEUTROPHILS % (AUTO) 79.3 % (40.0-77.0); PLATELET COUNT (AUTO) 242 K/uL (130-400); RED BLOOD CELL COUNT(AUTO) 3.22 MIL/uL (4.00-5.50); RED CELL DISTRIBUTION WIDTH 13.3 % (11.0-15.5); WHITE BLOOD COUNT (AUTO) 8.2 K/uL (4.8-10.8)
[2024-05-07 16:28] LABS: INR 1.02 (0.85-1.15)
[2024-05-07 16:29] LABS: PARTIAL THROMBOPLASTIN TIME 30.9 SEC (26.3-35.5)
[2024-05-07] MEDS ORDERED: FAMOTIDINE 20MG TAB PO SCH (21:00)
[2024-05-07] MEDS: FAMOTIDINE 20MG VIAL IV SCH (21:11)
[2024-05-07 21:18] LABS: APPEARANCE,URINE CLEAR (CLEAR); BILIRUBIN,URINE NEGATIVE (NEGATIVE); COLOR,URINE LIGHT-YELLOW (YELLOW); GLUCOSE, URINE (UA) 300 mg/dL (NEGATIVE); KETONES,URINE NEGATIVE (NEGATIVE); LEUKOCYTE ESTERASE ,URINE NEGATIVE Leu/uL (NEGATIVE); NITRATE,URINE NEGATIVE (NEGATIVE); OCCULT BLOOD,URINE NEGATIVE (NEGATIVE); PROTEIN,URINE 10 mg/dL (NEGATIVE); UROBILINOGEN,URINE 0.2 mg/dL (0.2-1.0)
[2024-05-07 21:19] LABS: ADD UA MICROSCOPIC YES
[2024-05-07 21:24] LABS: MUCUS,URINE RARE LPF (None Seen); RBC,URINE 0-1 /HPF (0-1); WBC,URINE 0-1 /HPF (0-1)
[2024-05-07 22:15] VITALS: BP 137/58; PULSE 77; RESP 19; TEMP 97.9; O2SAT 96
[2024-05-08 03:44] VITALS: BP 125/69; PULSE 73; RESP 20; TEMP 97.4
[2024-05-08] MEDS ORDERED: 0.9%NACL 50ML IV SCH (07:30)
[2024-05-08 08:00] VITALS: BP 135/64; PULSE 76; RESP 16; TEMP 96.7; O2SAT 96
[2024-05-08 08:36] LABS: BASOPHILS # (AUTO) 0.02 K/uL (0.00-0.20); BASOPHILS % (AUTO) 0.3 % (0.0-5.0); EOSINOPHILS # (AUTO) 0.09 K/uL (0.00-0.70); EOSINOPHILS % (AUTO) 1.1 % (0.0-8.0); HEMATOCRIT 29.1 % (36-48); IMMATURE GRANULOCYTE ABSOLUTE 0.19 K/uL (0-1); LYMPHOCYTES # (AUTO) 1.5 K/uL (1.0-4.8); LYMPHOCYTES % (AUTO) 18.6 % (21.0-51.0); MEAN CORPUSCULAR HEMOGLOBIN 27.9 pg (27.0-33.0); MEAN CORPUSCULAR HGB CONC 29.2 g/dL (32.0-36.0); MEAN CORPUSCULAR VOLUME 95.4 fL (79-99); MONOCYTES # (AUTO) 1.5 K/uL (0.1-1.0); MONOCYTES % (AUTO) 19.5 % (3.0-13.0); NEUTROPHILS # (AUTO) 4.6 K/uL (1.8-7.7); NEUTROPHILS % (AUTO) 58.1 % (40.0-77.0); PLATELET COUNT (AUTO) 226 K/uL (130-400); RED BLOOD CELL COUNT(AUTO) 3.05 MIL/uL (4.00-5.50); RED CELL DISTRIBUTION WIDTH 13.5 % (11.0-15.5); WHITE BLOOD COUNT (AUTO) 7.9 K/uL (4.8-10.8)
[2024-05-08 08:53] LABS: CREATININE 1.3 mg/dL (0.5-1.0); POTASSIUM 5.6 mmol/L (3.5-5.1)
[2024-05-08] MEDS: ZOSYN 3.375GM +NS 50ML IVPB SCH (09:53)
[2024-05-08] MEDS: ketOROlac 10 MG TABLET PO PRN (11:47)
[2024-05-08 12:00] VITALS: BP 116/61; PULSE 69; RESP 16
[2024-05-08] MEDS: morPHINE 2 MG SYG IVP PRN (13:24)
[2024-05-08 16:00] VITALS: BP 135/66; PULSE 68; RESP 18; TEMP 96.4
[2024-05-08 20:00] VITALS: O2SAT 98
[2024-05-08 20:13] VITALS: BP 116/57; PULSE 57; RESP 22; TEMP 97.5
[2024-05-09] VITALS (18 sets, daily range): BP systolic 105–144; BP diastolic 43–81; PULSE 69–81; RESP 16–20; TEMP 97.5–98.4
[2024-05-09 05:39] LABS: BASOPHILS # (AUTO) 0.02 K/uL (0.00-0.20); BASOPHILS % (AUTO) 0.2 % (0.0-5.0); EOSINOPHILS # (AUTO) 0.33 K/uL (0.00-0.70); HEMATOCRIT 30.1 % (36-48); IMMATURE GRANULOCYTE ABSOLUTE 0.12 K/uL (0-1); LYMPHOCYTES # (AUTO) 0.9 K/uL (1.0-4.8); LYMPHOCYTES % (AUTO) 11.3 % (21.0-51.0); MEAN CORPUSCULAR HEMOGLOBIN 27.1 pg (27.0-33.0); MEAN CORPUSCULAR HGB CONC 28.9 g/dL (32.0-36.0); MEAN CORPUSCULAR VOLUME 93.8 fL (79-99); MONOCYTES % (AUTO) 12.5 % (3.0-13.0); NEUTROPHILS # (AUTO) 5.8 K/uL (1.8-7.7); NEUTROPHILS % (AUTO) 70.5 % (40.0-77.0); PLATELET COUNT (AUTO) 252 K/uL (130-400); RED BLOOD CELL COUNT(AUTO) 3.21 MIL/uL (4.00-5.50); RED CELL DISTRIBUTION WIDTH 13.2 % (11.0-15.5); WHITE BLOOD COUNT (AUTO) 8.2 K/uL (4.8-10.8)
[2024-05-09 05:59] LABS: CREATININE 1.2 mg/dL (0.5-1.0); POTASSIUM 5.1 mmol/L (3.5-5.1)
[2024-05-09] MEDS ORDERED: ondanSETRON 4MG INJ ONE (08:25)
[2024-05-09] MEDS ORDERED: proPOFol 10 MG/ML 20ML VIAL IV ONE ×2 (08:25→09:25)
[2024-05-09] MEDS ORDERED: rocuRONium bROMide 10MG/1ML 5ML VL ONE (08:26)
[2024-05-09] MEDS ORDERED: ROPivacaine 0.5% 5MG/ML 30ML ONE (08:27)
[2024-05-09] MEDS ORDERED: LIDOCAINE 2%-EPI 1:200,000 20 ML VIAL IJ ONE (08:27)
[2024-05-09] MEDS ORDERED: MIDAZOLAM HCL 1 MG/ML 2ML VIAL ONE (08:57)
[2024-05-19] MEDS ORDERED: ACET-2079 PO (09:23)
== END 2024-05-09 14:00 | disposition home or self-care (01) ==
LOC: EDH 14:57 → EDHIP 15:49 → 4BH 22:15
PROVIDERS: ADMIT Internal Medicine Critical Care Medicine; ATTEND Internal Medicine Critical Care Medicine
DX: T84.293A Other mechanical complication of internal fixation device of bones of foot and toes, initial encounter (principal); I11.0 Hypertensive heart disease with heart failure; I50.9 Heart failure, unspecified; E11.40 Type 2 diabetes mellitus with diabetic neuropathy, unspecified; E78.5 Hyperlipidemia, unspecified; F41.9 Anxiety disorder, unspecified; F32.A Depression, unspecified; M19.90 Unspecified osteoarthritis, unspecified site; E03.9 Hypothyroidism, unspecified; Z79.4 Long term (current) use of insulin; Z79.899 Other long term (current) drug therapy; Y92.89 Other specified places as the place of occurrence of the external cause
CPT/HCPCS: 96375; 99284; 80048 ×3; 85025 ×3; 85610; 85730; 87040; 82948 ×2; 83605; 81001; 36415 ×3; 71045; 73620; 96376 ×2; 96365; 96366 ×2; 85651; 86140; 73610 ×2; 20680; G0378 ×45; J3490 ×5; J2270 ×7; J2405 ×2; J2543 ×4; A4606; A4344; J2250; J2704 ×2; J2795; A4649 ×2; A4215; A4223; A4222; J7030